=== PATIENT | male | born 1975 | race Hispanic/Latino ===

== ENCOUNTER 2022-02-13 21:23 | Emergency (ER) | payer OTHER, SELFPAY ==
[2022-02-13] MEDS ORDERED: Proparacaine 0.5% Opth 15 ML BOT ONE (22:30)
[2022-02-13] MEDS ORDERED: Fluorescein Opthalmic Strip ONE (22:38)
[2022-02-13] MEDS ORDERED: Boostrix 0.5 ML (Tdap) VIAL (>/=7 yrs of age) ONE (22:46)
== END 2022-02-13 22:00 | disposition home or self-care (01) ==
LOC: ERS 21:23
DX: S05.01XA Injury of conjunctiva and corneal abrasion without foreign body, right eye, initial encounter (principal); X58.XXXA Exposure to other specified factors, initial encounter; Y92.69 Other specified industrial and construction area as the place of occurrence of the external cause; Z23 Encounter for immunization
CPT/HCPCS: 90471; 90715